=== PATIENT | female | born 1935 | race Caucasian/White ===

== ENCOUNTER 2016-12-12 11:19 | Emergency (ER) | payer OTHER ==
[~2016-12-12] VITALS: Ht 160 cm; Wt 72.8 kg
[~2016-12-12 11:19] MED LIST: TYLENOL WITH C1 EACH PO
[2016-12-12 11:31] VITALS: BP 132/69
== END 2016-12-12 13:01 | disposition left against medical advice (07) ==
LOC: EME 11:19
DX: S99.922A Unspecified injury of left foot, initial encounter (principal); Z53.21 Procedure and treatment not carried out due to patient leaving prior to being seen by health care provider
CPT/HCPCS: 73630

== ENCOUNTER 2017-03-16 07:39 | Day surgery (SDC) | payer OTHER ==
[~2017-03-16] VITALS: Ht 157.5 cm; Wt 71.7 kg
[~2017-03-16 07:39] MED LIST changes: +B-COMPLEX-VITA1 EACH PO; +MULTI-DAY VITA1 EACH PO; +PANTOPRAZOLE SO20 MG PO
== END 2017-03-16 09:30 | disposition home or self-care (01) ==
LOC: PAIN 07:39 → SDC 08:00 → PAIN 09:30
DX: M16.12 Unilateral primary osteoarthritis, left hip (principal); F41.9 Anxiety disorder, unspecified; M51.36 Other intervertebral disc degeneration, lumbar region; M47.26 Other spondylosis with radiculopathy, lumbar region; M46.1 Sacroiliitis, not elsewhere classified; K21.9 Gastro-esophageal reflux disease without esophagitis; K44.9 Diaphragmatic hernia without obstruction or gangrene; Z88.0 Allergy status to penicillin; Z88.2 Allergy status to sulfonamides; Z88.5 Allergy status to narcotic agent; Z88.8 Allergy status to other drugs, medicaments and biological substances
CPT/HCPCS: J1030; J3010

== ENCOUNTER 2017-07-11 07:16 | Day surgery (SDC) | payer OTHER ==
[~2017-07-11] VITALS: Ht 157.5 cm; Wt 72.6 kg
[~2017-07-11 07:16] MED LIST changes: +COQ10-VIT E 201 EACH PO; +KELP1 EACH PO; +MAGNESIUM30 MG PO; +MYCOSTATIN 100,60 ML PO; +PENNSAID2 GM TP; +VITAMIN D-32000 UNI2 PO
== END 2017-07-11 08:55 | disposition home or self-care (01) ==
LOC: PAIN 07:16 → SDC 07:45 → PAIN 08:55
DX: M47.26 Other spondylosis with radiculopathy, lumbar region (principal); M51.16 Intervertebral disc disorders with radiculopathy, lumbar region; K21.9 Gastro-esophageal reflux disease without esophagitis; M46.1 Sacroiliitis, not elsewhere classified; E04.1 Nontoxic single thyroid nodule; Z88.2 Allergy status to sulfonamides; Z88.0 Allergy status to penicillin
CPT/HCPCS: J1030; J3010; S0020

== ENCOUNTER → 2017-07-18 | Day surgery (SDC) | payer OTHER ==
[~2017-07-18] VITALS: Ht 157.5 cm; Wt 72.6 kg
== END | disposition home or self-care (01) ==
LOC: PAIN 07:23 → SDC 08:00 → PAIN 08:00
DX: Z53.8 Procedure and treatment not carried out for other reasons (principal)
CPT/HCPCS: J1030; J3010; S0020

== ENCOUNTER 2017-09-07 07:07 | Day surgery (SDC) | payer OTHER ==
[~2017-09-07] VITALS: Ht 157.5 cm; Wt 72.6 kg
[~2017-09-07 07:07] MED LIST changes: +TRAZODONE HCL50 MG PO; +TYLENOL W/COD1 COMB1 PO
== END 2017-09-07 08:10 | disposition home or self-care (01) ==
LOC: PAIN 07:07 → SDC 07:30 → PAIN 07:30
DX: M47.26 Other spondylosis with radiculopathy, lumbar region (principal); M51.16 Intervertebral disc disorders with radiculopathy, lumbar region; M46.1 Sacroiliitis, not elsewhere classified; K21.9 Gastro-esophageal reflux disease without esophagitis; E04.1 Nontoxic single thyroid nodule; Z88.2 Allergy status to sulfonamides; Z88.0 Allergy status to penicillin
CPT/HCPCS: J1030; S0020

== ENCOUNTER 2017-12-14 06:46 | Day surgery (SDC) | payer OTHER, BC ==
[~2017-12-14] VITALS: Ht 154.9 cm; Wt 70.3 kg
== END 2017-12-14 08:35 | disposition home or self-care (01) ==
LOC: PAIN 06:46 → SDC 07:30 → PAIN 07:30
DX: M53.3 Sacrococcygeal disorders, not elsewhere classified (principal); M46.1 Sacroiliitis, not elsewhere classified; Z88.0 Allergy status to penicillin; Z88.2 Allergy status to sulfonamides; M47.816 Spondylosis without myelopathy or radiculopathy, lumbar region; M51.36 Other intervertebral disc degeneration, lumbar region; M54.16 Radiculopathy, lumbar region; K21.9 Gastro-esophageal reflux disease without esophagitis; K44.9 Diaphragmatic hernia without obstruction or gangrene
CPT/HCPCS: J1030; S0020